=== PATIENT | female | born 1995 | race Caucasian/White ===

== ENCOUNTER 2017-08-27 19:01 | Emergency (ER) | payer BC ==
[~2017-08-27] VITALS: Ht 154.9 cm; Wt 90.5 kg
[2017-08-27 19:09] VITALS: BP 169/106; PULSE 97; TEMP 36.8; O2SAT 99; Ht 154.9 cm; Wt 90.5 kg
--- NOTE | 2017-08-27 20:37 | DIAGNOSTIC IMAGING REPORT ---
RIGHT HAND 3 VIEWS HISTORY: DORSAL R HAND PAIN X SEVERAL MONTHS COMPARISON: None. FINDINGS: There is no fracture or dislocation. Soft tissues are unremarkable. No radiopaque foreign bodies. IMPRESSION: Unremarkable right hand. Electronically signed by: Clemente Chowdhury M.D. 08/27/2017 8:36 PM Dictated Date/Time: 08/27/2017 8:34 PM
--- NOTE | 2017-08-27 20:52 | EMERGENCY ROOM VISIT NOTE ---
ED Visit Note First contact with patient: 19:38 CHIEF COMPLAINT: Right hand and wrist pain times several months HISTORY OF PRESENT ILLNESS: Patient is a [id number] 22-year-old white female who presents to the emergency department for evaluation of ongoing right hand pain. She states her symptoms started in May about 3 months ago, without inciting incident or trauma. She states she just began to notice that she had pain in the back of her left hand, around her index finger. She thought maybe she had injured it somehow and thought it was just bruised, but her pain has persisted. Initially she noted pain around the second and see a joint, the pain has recently begun to radiate more toward her wrist. She has difficulty with certain movements including grasping and twisting, holding a pencil to write, and making a fist. She has applied ice, but has not used any medication for discomfort. There is no numbness of the hand or weakness of the fingers. 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 REVIEW OF SYSTEMS: Review of systems as per HPI. All other systems reviewed were negative. At least 6 systems reviewed. PMH: Electronic medical records are reviewed and summarized as above/below. See Problem List. SOCIAL HISTORY: Patient is a college student from [place] who lives locally with roommates. She does not smoke, denies alcohol use. PHYSICAL EXAM: Vital Signs: Reviewed Nurse's notes. CONSTITUTIONAL: Patient is a well-appearing 22-year-old white female who is awake and alert and in no acute distress. MUSCULOSKELETAL: Examination of the right hand notes some very faint dorsal soft tissue swelling, primarily over the second and third metacarpal. She has some mild tenderness to palpation of the dorsum of the hand, along the extensor tendon structures extending to the crease of the wrist. There is no pain over the thumb or anatomic snuffbox tenderness. Range of motion is full. Hand is neurovascularly intact. There is no deformity. The skin is intact. Flexion and extension of the fingers is intact. The fingers are warm and well perfused. EMERGENCY DEPARTMENT COURSE: X-rays of the right hand were obtained and negative for acute bony pathology. Differential diagnoses entertained included tendinitis, stress fracture, ligamentous injury, among others. The patient was fitted with a wrist lacer for comfort. Conservative care measures were discussed. If her symptoms are not improving she was advised to follow-up with orthopedics for further care and evaluation. She expressed understanding of this and was agreeable. She is discharged to home in good condition. Medication reconciliation: I attest that I have personally reviewed the patient' s current medication list. Blood pressure screening: Patient was found to have a slightly elevated blood pressure due to circumstances. I do not believe that the patient requires hypertension monitoring. RIGHT HAND 3 VIEWS HISTORY: DORSAL R HAND PAIN X SEVERAL MONTHS COMPARISON: None. FINDINGS: There is no fracture or dislocation. Soft tissues are unremarkable. No radiopaque foreign bodies. IMPRESSION: Unremarkable right hand. Problem List Medical Problems: (1) Ankle pain Status: Resolved (2) Ankle swelling Status: Resolved Current/Historical Medications No Active Prescriptions or Reported Meds Allergies Coded Allergies: Diphenhydramine (Verified Allergy, Intermediate, hives, 06/18/16) Bacitracin (Verified Allergy, Mild, rash, 06/18/16) Neomycin (Verified Allergy, Mild, rash, 06/18/16) Polymyxin B (Verified Allergy, Mild, rash, 06/18/16) Uncoded Allergies: PENICILLIN (Allergy, Intermediate, hives, 06/18/16) Vital Signs Date Time Temp Pulse Resp B/P (MAP) Pulse Ox O2 Delivery O2 Flow Rate FiO2 08/27/17 19:09 36.8 97 18 169/106 99 Room Air Departure Information Impression Primary Impression: Right hand pain Prescriptions No Active Prescriptions or Reported Meds Referrals No Doctor, Assigned (PCP) Dereck Cárdenas MD Patient Instructions My [facility] Additional Instructions Ibuprofen(Motrin, Advil) may be used for fever or pain. Use 600mg every six hours as needed. Take with food. Avoid using more than 2400mg in a 24 hour period. Do not use 2400mg per day for more than three consecutive days without physician direction. Prolonged inappropriate use can lead to stomach upset or ulcers. This medication can be taken if you need to drive, work, or perform activities which may be dangerous when taking narcotic pain medication. (AND/OR) Acetaminophen(Tylenol) may be used for fever or pain. Use 1000mg every six hours as needed. Avoid using more than 3000mg in a 24 hour period. This medication can be taken if you need to drive, work, or perform activities which may be dangerous when taking narcotic pain medication. Ice compresses for 20 minutes at a time four times daily for 2-3 days. Use the wrist lacer as instructed. Rest and elevate your injury. Avoid any strenuous activity that exacerbate your pain. Continue current medications. Followup with your family doctor or orthopedic surgery if no improvement in 5-7 days.
== END 2017-08-27 21:03 | disposition home or self-care (01) ==
LOC: C.EDB 19:02 → C.EDD 21:03
DX: M79.641 Pain in right hand (principal)